=== PATIENT | female | born 1965 | race Caucasian/White ===

== ENCOUNTER 2018-08-11 21:17 | Emergency (ER) | payer OTHER ==
[2018-08-11] MEDS: DIPHENHYDRAMINE 50 MG CAP PO (22:51)
[2018-08-11] MEDS: DEXAMETHASONE 4 MG TAB PO (23:02)
== END 2018-08-11 23:33 | disposition home or self-care (01) ==
LOC: FTE 21:17
DX: R21 Rash and other nonspecific skin eruption (principal)
CPT/HCPCS: 99283; Z7610